=== PATIENT | female | born 1965 | race Caucasian/White ===

== ENCOUNTER 2016-11-24 10:56 | Emergency (ER) | payer BC, MEDICAID ==
[~2016-11-24] VITALS: Ht 182.9 cm; Wt 97.3 kg
[~2016-11-24 10:56] MED LIST: ESTR1PAT66 TD; LEVO125T45 PO; OXYC5TAB3 PO
[2016-11-24 11:03] VITALS: BP 153/94
[2016-11-24] MEDS ORDERED: SODIUM CHLORIDE 0.9% 1,000 ML IV ONE (11:39)
[2016-11-24] MEDS ORDERED: SODIUM CHLORIDE 0.9% 1,000ML IV ONE (12:00)
[2016-11-24] MEDS ORDERED: SODIUM CHLORIDE FLUSH 10ML SYR IVF ONE (12:00)
[2016-11-24] MEDS ORDERED: KETOROLAC 30 MG/1 ML IVPush ONE (12:00)
[2016-11-24 12:12] LABS: BLOOD UREA NITROGEN 15 mg/dL (7-18)
[2016-11-24] MEDS ORDERED: KETOROLAC 30 MG/1 ML ONE (12:14)
[2016-11-24 12:20] LABS: PATH.CAST-FLAG NOT PRESENT; SPERM-FLAG NOT PRESENT; SRC-FLAG NOT PRESENT; XTAL-FLAG NOT PRESENT; YLC-FLAG NOT PRESENT
== END 2016-11-24 12:06 | disposition left against medical advice (07) ==
LOC: ED 12:05 → UNDOADMIN 12:34 → EDIP 12:34
DX: M54.5 Low back pain (principal); E03.9 Hypothyroidism, unspecified
CPT/HCPCS: 36415; 72110; 80048; 81001; 82040; 83605; 85025; 93005; 96361; 96374; 99285; J1885; J7030